=== PATIENT | female | born 1935 | race Caucasian/White ===

== ENCOUNTER 2018-01-09 19:46 | Emergency (ER) | payer MEDICARE, BC ==
[~2018-01-09] VITALS: Ht 160 cm; Wt 63.6 kg
[~2018-01-09 19:46] MED LIST: CEPH500C5 PO
[2018-01-09 21:30] VITALS: BP 144/58
== END 2018-01-09 22:34 | disposition home or self-care (01) ==
LOC: ER 19:46
DX: S00.83XA Contusion of other part of head, initial encounter (principal); S40.211A Abrasion of right shoulder, initial encounter; S80.211A Abrasion, right knee, initial encounter; I10 Essential (primary) hypertension; E11.9 Type 2 diabetes mellitus without complications; Z79.899 Other long term (current) drug therapy; W18.39XA Other fall on same level, initial encounter; Y93.89 Activity, other specified; Y92.89 Other specified places as the place of occurrence of the external cause; Y99.8 Other external cause status
CPT/HCPCS: 70450; 82948; 99284

== ENCOUNTER 2018-07-21 10:21 | Inpatient (IN) | payer MEDICARE, BC ==
[~2018-07-21] VITALS: Ht 160 cm; Wt 58.0 kg
[2018-07-21] MEDS ORDERED: normal saline 1000ML IV soln IVB ONE (12:30)
[2018-07-21] MEDS ORDERED: normal saline 1000ml 1,000 ML IV SCH (12:50)
[2018-07-21 12:55] LABS: BASOPHILS % (AUTO) 0 % (0-1); EOSINOPHILS # (AUTO) 0.2 X10'3 (0-0.9); EOSINOPHILS % (AUTO) 1.5 % (0-6); HEMATOCRIT 40.6 % (35.0-45.0); HEMOGLOBIN 13.4 g/dl (12.0-16.0); LYMPHOCYTES # (AUTO) 1.2 X10'3 (1.1-4.8); LYMPHOCYTES % (AUTO) 10.2 % (21-51); MEAN CORPUSCULAR HEMOGLOBIN 29.5 PG (27.0-31.0); MEAN CORPUSCULAR HGB CONC 32.9 % (33.0-36.5); MEAN CORPUSCULAR VOLUME 89.6 FL (78-98); MEAN PLATELET VOLUME 8.3 FL (7.4-10.4); MONOCYTES # (AUTO) 0.2 X10'3 (0-0.9); NEUTROPHILS # (AUTO) 10.4 X10'3 (1.8-7.7); NEUTROPHILS % (AUTO) 86.3 % (42-75); PLATELET COUNT 303 X10'3 (140-440); RED BLOOD COUNT 4.52 X10'6 (4.20-5.60); RED CELL DISTRIBUTION WIDTH 13.4 % (11.5-14.5)
[2018-07-21 13:11] LABS: PARTIAL THROMBOPLASTIN TIME 25 SECONDS (22-32); PROTHROMBIN TIME 10.3 SECONDS (9.0-12.0)
[2018-07-21 13:26] LABS: ALANINE AMINOTRANSFERASE 18 U/L (12-78); ALBUMIN 3.4 G/DL (3.4-5.0); ALKALINE PHOSPHATASE 78 IU/L (46-116); ANION GAP 12 (8-16); ASPARTATE AMINO TRANSFERASE 14 U/L (10-37); BILIRUBIN,TOTAL 0.5 MG/DL (0.1-1.0); BLOOD UREA NITROGEN 21 MG/DL (7-18); BUN/CREATININE RATIO 22.3 (6.6-38.0); CALCIUM 9.6 MG/DL (8.5-10.1); CHLORIDE 99 MMOL/L (99-107); CREATININE 0.94 MG/DL (0.40-0.90); GLUCOSE 440 MG/DL (70-104); POTASSIUM 5.3 MMOL/L (3.5-5.1); SODIUM 137 MMOL/L (135-145); TOTAL PROTEIN 6.9 G/DL (6.4-8.2); TROPONIN I < 0.04 NG/ML (0.0-0.05); eGFR 57 ML/MIN
[2018-07-21] MEDS ORDERED: insulin regular, human 10 units/0.1 ml syringe IV ONE (13:40)
[2018-07-21] MEDS ORDERED: ondansetron/PF 4mg/2ml inj IV ONE (13:40)
[2018-07-21] MEDS ORDERED: pantoprazole 40 MG vial IV ONE (14:35)
[2018-07-21 14:36] LABS: CLARITY,URINE CLEAR (Clear); COLOR,URINE STRAW (Yellow); GLUCOSE, URINE >=1000 mg/dl (Neg); KETONES,URINE >=80 mg/dl (Neg); LEUKOCYTE ESTERASE ,URINE NEGATIVE (Neg); NITRITES, URINE NEGATIVE (Neg); OCCULT BLOOD,URINE NEGATIVE (Neg); PROTEIN,URINE NEGATIVE (Neg); UROBILINOGEN,URINE 0.2 E.U/dL (0.2-1.0)
[2018-07-21 14:49] LABS: UA COLLECTION TYPE STRAIGHT CATH
[2018-07-21 14:51] LABS: BACTERIA,URINE NONE SEEN /HPF (Neg); RBC,URINE NONE SEEN /HPF (0-2); SQUAMOUS EPITHELIAL CELL,UR FEW /LPF (FEW); WBC,URINE NONE SEEN /HPF (0-4)
[2018-07-21] MEDS ORDERED: magnesium 4gm in 100ml NS 100 ML IV PRN (16:15)
[2018-07-21] MEDS: K and/or MAG REPLACEMENT MC SCH (16:15)
[2018-07-21] MEDS ORDERED: potassium Cl 40MEQ/NS 500ml 500 ML IV PRN ×2 (16:15)
[2018-07-21] MEDS ORDERED: potassium Cl 20 mEq SR tablet PO PRN ×2 (16:15)
[2018-07-21] MEDS ORDERED: ondansetron/PF 4mg/2ml inj IV PRN (16:15)
[2018-07-21] MEDS ORDERED: dextrose 50%-water 50ml dispensing syringe IV PRN ×2 (16:25)
[2018-07-21] MEDS ORDERED: dextrose ORAL solution 15 GM/59 ML bottle PO PRN (16:25)
[2018-07-21] MEDS ORDERED: MESSAGE TO PHARMACY PO ONE (16:25)
[2018-07-21] MEDS ORDERED: glucagon, human recombinant 1mg kit SUBCUT PRN (16:25)
[2018-07-21] MEDS: normal saline 1000ml 1,000 ML IV SCH (16:49)
[2018-07-21 16:52] LABS: HEMOGLOBIN A1C 10.2 % (4.5-6.2)
[2018-07-21] MEDS ORDERED: DIVA125T31 PO (17:54)
[2018-07-21] MEDS ORDERED: MULT-1180 (17:54)
[2018-07-21] MEDS ORDERED: GLIM1TAB46 PO (17:54)
[2018-07-21] MEDS ORDERED: DIVA500T9 PO (17:54)
[2018-07-21] MEDS ORDERED: HYDR-3686 PO (17:54)
[2018-07-21] MEDS ORDERED: ATOR20TA66 PO (17:54)
[2018-07-21] MEDS ORDERED: ESCI10TA54 PO (17:54)
[2018-07-21] MEDS ORDERED: NATE120T6 PO (18:11)
[2018-07-21] MEDS ORDERED: NATE60TA11 CORPAK (18:11)
[2018-07-21] MEDS ORDERED: LISI-604 PO (18:11)
[2018-07-21] MEDS ORDERED: METF-436 PO (18:11)
[2018-07-21] MEDS ORDERED: KEN0.1O TP (18:12)
[2018-07-21] MEDS ORDERED: PSYL3.4P5 PO (18:13)
[2018-07-21] MEDS: pantoprazole 40 MG vial IV SCH (20:08)
[2018-07-21] MEDS: insulin glargine (Lantus) pen - multi-dose SQ SCH (22:10)
[2018-07-21] MEDS ORDERED: Permethrin Cream 60gm TP ONE (23:00)
[2018-07-22] VITALS: BP 114/50
[2018-07-22] MEDS: normal saline 1000ml 1,000 ML IV SCH ×3 (02:27→22:11)
[2018-07-22 04:59] LABS: BASOPHILS # (AUTO) 0.1 X10'3 (0-0.2); BASOPHILS % (AUTO) 0.7 % (0-1); EOSINOPHILS # (AUTO) 0.2 X10'3 (0-0.9); EOSINOPHILS % (AUTO) 1.4 % (0-6); HEMATOCRIT 35.4 % (35.0-45.0); HEMOGLOBIN 11.5 g/dl (12.0-16.0); LYMPHOCYTES # (AUTO) 2.4 X10'3 (1.1-4.8); LYMPHOCYTES % (AUTO) 21.2 % (21-51); MEAN CORPUSCULAR HEMOGLOBIN 29.2 PG (27.0-31.0); MEAN CORPUSCULAR HGB CONC 32.5 % (33.0-36.5); MEAN CORPUSCULAR VOLUME 89.9 FL (78-98); MEAN PLATELET VOLUME 8.7 FL (7.4-10.4); MONOCYTES # (AUTO) 1.1 X10'3 (0-0.9); MONOCYTES % (AUTO) 9.9 % (2-12); NEUTROPHILS # (AUTO) 7.5 X10'3 (1.8-7.7); NEUTROPHILS % (AUTO) 66.8 % (42-75); PLATELET COUNT 263 X10'3 (140-440); RED BLOOD COUNT 3.94 X10'6 (4.20-5.60); RED CELL DISTRIBUTION WIDTH 13.5 % (11.5-14.5); WHITE BLOOD COUNT 11.2 X10'3 (4.5-11.0)
[2018-07-22 05:19] LABS: ALBUMIN 2.8 G/DL (3.4-5.0); ANION GAP 9 (8-16); BLOOD UREA NITROGEN 25 MG/DL (7-18); BUN/CREATININE RATIO 25.5 (6.6-38.0); CALCIUM 8.3 MG/DL (8.5-10.1); CHLORIDE 107 MMOL/L (99-107); CREATININE 0.98 MG/DL (0.40-0.90); GLUCOSE 129 MG/DL (70-104); SODIUM 144 MMOL/L (135-145); TOTAL CARBON DIOXIDE 28.3 MMOL/L (24-32); eGFR 54 ML/MIN
[2018-07-22 07:50] VITALS: BP 102/40
[2018-07-22] MEDS ORDERED: metFORMIN 500mg tablet PO SCH (08:00)
[2018-07-22] MEDS: K and/or MAG REPLACEMENT MC SCH (08:00)
[2018-07-22] MEDS: citalopram 20mg tablet PO SCH (08:12)
[2018-07-22] MEDS: pantoprazole 40 MG vial IV SCH ×2 (08:12→19:45)
[2018-07-22] MEDS: atorvastatin 20mg tablet PO SCH (08:13)
[2018-07-22] MEDS: divalproex sod 125mg tablet.DR PO SCH ×2 (08:13→19:46)
[2018-07-22] MEDS: lisinopril 10 MG tablet PO SCH (08:14)
[2018-07-22] MEDS: magnesium Cl slow-release 64mg tablet PO PRN ×2 (10:09→22:31)
[2018-07-22 11:47] VITALS: BP 148/63
[2018-07-22] MEDS ORDERED: levoFLOXACIN-Levaquin 500mg/D5 100 ML IV ONE (15:10)
[2018-07-22 18:00] VITALS: BP 133/57
[2018-07-22 19:00] LABS: CLARITY,URINE CLEAR (Clear); COLOR,URINE YELLOW (Yellow); GLUCOSE, URINE >=1000 mg/dl (Neg); KETONES,URINE 15 mg/dl (Neg); LEUKOCYTE ESTERASE ,URINE NEGATIVE (Neg); NITRITES, URINE NEGATIVE (Neg); OCCULT BLOOD,URINE NEGATIVE (Neg); PROTEIN,URINE NEGATIVE (Neg); UROBILINOGEN,URINE 0.2 E.U/dL (0.2-1.0)
[2018-07-22 19:07] LABS: RBC,URINE 0-2 /HPF (0-2); UA COLLECTION TYPE STRAIGHT CATH; WBC,URINE NONE SEEN /HPF (0-4)
[2018-07-22 19:08] LABS: BACTERIA,URINE FEW /HPF (Neg); MUCUS STRANDS FEW /LPF (Neg); SQUAMOUS EPITHELIAL CELL,UR FEW /LPF (FEW)
[2018-07-22] MEDS: hydrocortisone 1% cream 28gm TP SCH (19:45)
[2018-07-22] MEDS ORDERED: sennosides/docusate sodium tablet PO ONE (20:00)
[2018-07-22] MEDS ORDERED: insulin glargine (Lantus) pen - multi-dose SQ ONE (21:00)
[2018-07-22] MEDS: insulin glargine (Lantus) pen - multi-dose SQ SCH (21:00)
[2018-07-23] VITALS: BP 130/70
[2018-07-23] MEDS: normal saline 1000ml 1,000 ML IV SCH ×2 (01:43→12:55)
[2018-07-23 05:18] LABS: BASOPHILS # (AUTO) 0.1 X10'3 (0-0.2); BASOPHILS % (AUTO) 1.1 % (0-1); EOSINOPHILS # (AUTO) 0.2 X10'3 (0-0.9); EOSINOPHILS % (AUTO) 1.9 % (0-6); HEMOGLOBIN 10.8 g/dl (12.0-16.0); LYMPHOCYTES # (AUTO) 2.2 X10'3 (1.1-4.8); LYMPHOCYTES % (AUTO) 26.4 % (21-51); MEAN CORPUSCULAR HEMOGLOBIN 29.1 PG (27.0-31.0); MEAN CORPUSCULAR HGB CONC 32.5 % (33.0-36.5); MEAN CORPUSCULAR VOLUME 89.6 FL (78-98); MEAN PLATELET VOLUME 8.6 FL (7.4-10.4); MONOCYTES # (AUTO) 0.8 X10'3 (0-0.9); NEUTROPHILS # (AUTO) 5.2 X10'3 (1.8-7.7); NEUTROPHILS % (AUTO) 61.6 % (42-75); PLATELET COUNT 260 X10'3 (140-440); RED BLOOD COUNT 3.69 X10'6 (4.20-5.60); RED CELL DISTRIBUTION WIDTH 13.7 % (11.5-14.5); WHITE BLOOD COUNT 8.4 X10'3 (4.5-11.0)
[2018-07-23 05:42] LABS: ALBUMIN 2.5 G/DL (3.4-5.0); ANION GAP 8 (8-16); BLOOD UREA NITROGEN 19 MG/DL (7-18); BUN/CREATININE RATIO 25.7 (6.6-38.0); CALCIUM 8.5 MG/DL (8.5-10.1); CHLORIDE 106 MMOL/L (99-107); CREATININE 0.74 MG/DL (0.40-0.90); GLUCOSE 69 MG/DL (70-104); POTASSIUM 4.3 MMOL/L (3.5-5.1); SODIUM 141 MMOL/L (135-145); TOTAL CARBON DIOXIDE 27.4 MMOL/L (24-32); eGFR 75 ML/MIN
[2018-07-23 07:00] VITALS: BP 133/56
[2018-07-23] MEDS: atorvastatin 20mg tablet PO SCH (07:23)
[2018-07-23] MEDS: citalopram 20mg tablet PO SCH (07:23)
[2018-07-23] MEDS: lisinopril 10 MG tablet PO SCH (07:23)
[2018-07-23] MEDS: pantoprazole 40 MG vial IV SCH (07:23)
[2018-07-23] MEDS: dextrose ORAL solution 15 GM/59 ML bottle PO PRN ×3 (07:23→17:19)
[2018-07-23] MEDS: divalproex sod 125mg tablet.DR PO SCH ×2 (07:23→20:26)
[2018-07-23] MEDS: K and/or MAG REPLACEMENT MC SCH (08:00)
[2018-07-23] MEDS: hydrocortisone 1% cream 28gm TP SCH ×2 (08:45→20:27)
[2018-07-23] MEDS: magnesium Cl slow-release 64mg tablet PO PRN ×2 (08:52→17:19)
[2018-07-23] MEDS ORDERED: tamsulosin 0.4mg capsule PO ONE (09:15)
[2018-07-23 11:00] VITALS: BP 113/68
[2018-07-23] MEDS ORDERED: levoFLOXACIN 500mg tablet PO ONE (11:40)
[2018-07-23] MEDS: insulin Lispro (HumaLOG) vial - multi-dose SQ SCH (13:48)
[2018-07-23 16:11] LABS: POTASSIUM 3.9 MMOL/L (3.5-5.1)
[2018-07-23 18:00] VITALS: BP 134/54
[2018-07-23] MEDS ORDERED: sennosides/docusate sodium tablet PO ONE (18:35)
[2018-07-23] MEDS: insulin glargine (Lantus) pen - multi-dose SQ SCH (22:26)
[2018-07-23 23:30] VITALS: BP 110/43
[2018-07-24] MEDS: magnesium 1gm/100ml D5W IVPB 100 ML IV PRN ×2 (01:18→03:36)
[2018-07-24 05:40] LABS: BASOPHILS % (AUTO) 0.3 % (0-1); EOSINOPHILS # (AUTO) 0.2 X10'3 (0-0.9); HEMATOCRIT 33.8 % (35.0-45.0); HEMOGLOBIN 10.8 g/dl (12.0-16.0); LYMPHOCYTES # (AUTO) 1.5 X10'3 (1.1-4.8); LYMPHOCYTES % (AUTO) 25.8 % (21-51); MEAN CORPUSCULAR HEMOGLOBIN 28.7 PG (27.0-31.0); MEAN CORPUSCULAR VOLUME 89.5 FL (78-98); MEAN PLATELET VOLUME 8.6 FL (7.4-10.4); MONOCYTES # (AUTO) 0.6 X10'3 (0-0.9); MONOCYTES % (AUTO) 10.4 % (2-12); NEUTROPHILS # (AUTO) 3.6 X10'3 (1.8-7.7); NEUTROPHILS % (AUTO) 60.5 % (42-75); PLATELET COUNT 227 X10'3 (140-440); RED BLOOD COUNT 3.78 X10'6 (4.20-5.60); RED CELL DISTRIBUTION WIDTH 13.3 % (11.5-14.5)
[2018-07-24 05:57] LABS: ALBUMIN 2.6 G/DL (3.4-5.0); ANION GAP 6 (8-16); BLOOD UREA NITROGEN 14 MG/DL (7-18); BUN/CREATININE RATIO 19.7 (6.6-38.0); CALCIUM 8.9 MG/DL (8.5-10.1); CHLORIDE 103 MMOL/L (99-107); CREATININE 0.71 MG/DL (0.40-0.90); GLUCOSE 251 MG/DL (70-104); POTASSIUM 3.9 MMOL/L (3.5-5.1); SODIUM 136 MMOL/L (135-145); TOTAL CARBON DIOXIDE 26.8 MMOL/L (24-32); eGFR 78 ML/MIN
[2018-07-24 07:00] VITALS: BP 128/47
[2018-07-24] MEDS: citalopram 20mg tablet PO SCH (07:04)
[2018-07-24] MEDS: pantoprazole 40mg Tablet.DR PO SCH (07:04)
[2018-07-24] MEDS: divalproex sod 125mg tablet.DR PO SCH ×2 (07:05→20:05)
[2018-07-24] MEDS: atorvastatin 20mg tablet PO SCH (07:05)
[2018-07-24] MEDS: hydrocortisone 1% cream 28gm TP SCH ×2 (07:06→20:05)
[2018-07-24] MEDS: lisinopril 10 MG tablet PO SCH (07:10)
[2018-07-24] MEDS: normal saline 1000ml 1,000 ML IV SCH ×2 (07:15→22:58)
[2018-07-24] MEDS: K and/or MAG REPLACEMENT MC SCH (08:00)
[2018-07-24] MEDS: insulin Lispro (HumaLOG) vial - multi-dose SQ SCH ×2 (09:26→13:27)
[2018-07-24] MEDS ORDERED: magnesium hydroxide 30ml (MOM) UD suspension PO PRN (11:55)
[2018-07-24] MEDS ORDERED: docusate sod 100mg capsule PO ONE (12:40)
[2018-07-24] MEDS: dextrose ORAL solution 15 GM/59 ML bottle PO PRN ×2 (17:29→17:44)
[2018-07-24 20:00] VITALS: BP 113/50
[2018-07-24] MEDS: docusate sod 100mg capsule PO SCH (20:05)
[2018-07-24] MEDS: insulin glargine (Lantus) pen - multi-dose SQ SCH (21:14)
[2018-07-25] VITALS: BP 138/59
[2018-07-25 05:48] LABS: BASOPHILS # (AUTO) 0.1 X10'3 (0-0.2); BASOPHILS % (AUTO) 1.1 % (0-1); EOSINOPHILS # (AUTO) 0.2 X10'3 (0-0.9); HEMATOCRIT 33.1 % (35.0-45.0); HEMOGLOBIN 10.8 g/dl (12.0-16.0); LYMPHOCYTES # (AUTO) 1.5 X10'3 (1.1-4.8); LYMPHOCYTES % (AUTO) 31.8 % (21-51); MEAN CORPUSCULAR HEMOGLOBIN 29.1 PG (27.0-31.0); MEAN CORPUSCULAR HGB CONC 32.6 % (33.0-36.5); MEAN CORPUSCULAR VOLUME 89.3 FL (78-98); MEAN PLATELET VOLUME 8.5 FL (7.4-10.4); MONOCYTES # (AUTO) 0.4 X10'3 (0-0.9); MONOCYTES % (AUTO) 8.9 % (2-12); NEUTROPHILS # (AUTO) 2.6 X10'3 (1.8-7.7); NEUTROPHILS % (AUTO) 54.2 % (42-75); PLATELET COUNT 232 X10'3 (140-440); RED BLOOD COUNT 3.71 X10'6 (4.20-5.60); RED CELL DISTRIBUTION WIDTH 13.7 % (11.5-14.5); WHITE BLOOD COUNT 4.8 X10'3 (4.5-11.0)
[2018-07-25 06:03] LABS: ALBUMIN 2.5 G/DL (3.4-5.0); ANION GAP 6 (8-16); BLOOD UREA NITROGEN 12 MG/DL (7-18); BUN/CREATININE RATIO 19.7 (6.6-38.0); CALCIUM 8.4 MG/DL (8.5-10.1); CHLORIDE 106 MMOL/L (99-107); CREATININE 0.61 MG/DL (0.40-0.90); GLUCOSE 136 MG/DL (70-104); MAGNESIUM 1.8 MG/DL (1.5-2.4); POTASSIUM 3.5 MMOL/L (3.5-5.1); SODIUM 138 MMOL/L (135-145); TOTAL CARBON DIOXIDE 25.9 MMOL/L (24-32); eGFR > 90 ML/MIN
[2018-07-25 07:00] VITALS: BP 132/61
[2018-07-25] MEDS: citalopram 20mg tablet PO SCH (07:11)
[2018-07-25] MEDS: docusate sod 100mg capsule PO SCH ×2 (07:12→20:34)
[2018-07-25] MEDS: atorvastatin 20mg tablet PO SCH (07:12)
[2018-07-25] MEDS: divalproex sod 125mg tablet.DR PO SCH ×2 (07:12→20:34)
[2018-07-25] MEDS: hydrocortisone 1% cream 28gm TP SCH ×2 (07:13→20:34)
[2018-07-25] MEDS: pantoprazole 40mg Tablet.DR PO SCH (07:13)
[2018-07-25] MEDS: lisinopril 10 MG tablet PO SCH (07:13)
[2018-07-25] MEDS: K and/or MAG REPLACEMENT MC SCH (08:00)
[2018-07-25] MEDS: insulin Lispro (HumaLOG) vial - multi-dose SQ SCH ×2 (09:47→20:18)
[2018-07-25 11:00] VITALS: BP 132/61
[2018-07-25] MEDS: normal saline 1000ml 1,000 ML IV SCH ×2 (12:21→20:35)
[2018-07-25] MEDS ORDERED: lactulose 20gm/30ml cup PO ONE (18:15)
[2018-07-25 20:00] VITALS: BP 151/57
[2018-07-25] MEDS: insulin glargine (Lantus) pen - multi-dose SQ SCH (22:17)
[2018-07-26] VITALS: BP 97/66
[2018-07-26 05:06] LABS: BASOPHILS % (AUTO) 0.6 % (0-1); EOSINOPHILS # (AUTO) 0.2 X10'3 (0-0.9); EOSINOPHILS % (AUTO) 4.1 % (0-6); HEMATOCRIT 32.1 % (35.0-45.0); HEMOGLOBIN 10.6 g/dl (12.0-16.0); LYMPHOCYTES % (AUTO) 41.8 % (21-51); MEAN CORPUSCULAR HEMOGLOBIN 29.5 PG (27.0-31.0); MEAN CORPUSCULAR VOLUME 89.4 FL (78-98); MEAN PLATELET VOLUME 8.6 FL (7.4-10.4); MONOCYTES # (AUTO) 0.5 X10'3 (0-0.9); MONOCYTES % (AUTO) 9.2 % (2-12); NEUTROPHILS # (AUTO) 2.2 X10'3 (1.8-7.7); NEUTROPHILS % (AUTO) 44.3 % (42-75); PLATELET COUNT 243 X10'3 (140-440); RED BLOOD COUNT 3.59 X10'6 (4.20-5.60); RED CELL DISTRIBUTION WIDTH 13.8 % (11.5-14.5); WHITE BLOOD COUNT 4.9 X10'3 (4.5-11.0)
[2018-07-26 05:28] LABS: ALBUMIN 2.4 G/DL (3.4-5.0); ANION GAP 8 (8-16); BLOOD UREA NITROGEN 13 MG/DL (7-18); BUN/CREATININE RATIO 21.3 (6.6-38.0); CALCIUM 8.5 MG/DL (8.5-10.1); CHLORIDE 108 MMOL/L (99-107); CREATININE 0.61 MG/DL (0.40-0.90); GLUCOSE 76 MG/DL (70-104); MAGNESIUM 1.5 MG/DL (1.5-2.4); POTASSIUM 3.9 MMOL/L (3.5-5.1); SODIUM 142 MMOL/L (135-145); TOTAL CARBON DIOXIDE 26.1 MMOL/L (24-32); eGFR > 90 ML/MIN
[2018-07-26 07:00] VITALS: BP 112/55
[2018-07-26] MEDS: divalproex sod 125mg tablet.DR PO SCH ×2 (07:19→20:17)
[2018-07-26] MEDS: dextrose ORAL solution 15 GM/59 ML bottle PO PRN (07:19)
[2018-07-26] MEDS: docusate sod 100mg capsule PO SCH ×2 (07:21→20:18)
[2018-07-26] MEDS: atorvastatin 20mg tablet PO SCH (07:21)
[2018-07-26] MEDS: lisinopril 10 MG tablet PO SCH (07:22)
[2018-07-26] MEDS: citalopram 20mg tablet PO SCH (07:22)
[2018-07-26] MEDS: hydrocortisone 1% cream 28gm TP SCH ×2 (07:23→20:18)
[2018-07-26] MEDS: pantoprazole 40mg Tablet.DR PO SCH (07:23)
[2018-07-26] MEDS: normal saline 1000ml 1,000 ML IV SCH ×2 (07:23→20:44)
[2018-07-26] MEDS: K and/or MAG REPLACEMENT MC SCH (08:00)
[2018-07-26 12:28] VITALS: BP 108/56
[2018-07-26] MEDS: insulin Lispro (HumaLOG) vial - multi-dose SQ SCH ×2 (13:18→19:03)
[2018-07-26 19:52] VITALS: BP 159/61
[2018-07-26] MEDS: insulin glargine (Lantus) pen - multi-dose SQ SCH (20:50)
[2018-07-26 23:48] VITALS: BP 151/52
[2018-07-27] MEDS: normal saline 1000ml 1,000 ML IV SCH ×2 (00:59→12:58)
[2018-07-27 07:30] VITALS: BP 154/44
[2018-07-27] MEDS: K and/or MAG REPLACEMENT MC SCH (08:00)
[2018-07-27] MEDS: citalopram 20mg tablet PO SCH (08:46)
[2018-07-27] MEDS: pantoprazole 40mg Tablet.DR PO SCH (08:46)
[2018-07-27] MEDS: atorvastatin 20mg tablet PO SCH (08:46)
[2018-07-27] MEDS: docusate sod 100mg capsule PO SCH ×2 (08:46→19:50)
[2018-07-27] MEDS: lisinopril 10 MG tablet PO SCH (08:47)
[2018-07-27] MEDS: divalproex sod 125mg tablet.DR PO SCH ×2 (08:47→19:50)
[2018-07-27] MEDS: hydrocortisone 1% cream 28gm TP SCH ×2 (08:53→19:50)
[2018-07-27] MEDS: insulin Lispro (HumaLOG) vial - multi-dose SQ SCH ×3 (08:59→19:52)
[2018-07-27] MEDS ORDERED: magnesium 4gm in 100ml NS 100 ML IV PRN (09:55)
[2018-07-27] MEDS ORDERED: Ivermectin 3mg tablet PO ONE (10:20)
[2018-07-27 13:31] VITALS: BP 123/66
[2018-07-27] MEDS: magnesium Cl slow-release 64mg tablet PO PRN (13:51)
[2018-07-27] MEDS: heparin, porcine 5000 units/ml vial SQ SCH (19:50)
[2018-07-27 20:00] VITALS: BP 126/47
[2018-07-27] MEDS: insulin glargine (Lantus) pen - multi-dose SQ SCH (21:22)
[2018-07-28] VITALS: BP 103/50
[2018-07-28] MEDS: magnesium Cl slow-release 64mg tablet PO PRN (01:59)
[2018-07-28] MEDS: normal saline 1000ml 1,000 ML IV SCH ×2 (03:59→20:21)
[2018-07-28 07:00] VITALS: BP 105/75
[2018-07-28] MEDS: K and/or MAG REPLACEMENT MC SCH (07:25)
[2018-07-28] MEDS: atorvastatin 20mg tablet PO SCH (07:35)
[2018-07-28] MEDS: citalopram 20mg tablet PO SCH (07:35)
[2018-07-28] MEDS: pantoprazole 40mg Tablet.DR PO SCH (07:35)
[2018-07-28] MEDS: lisinopril 10 MG tablet PO SCH (07:35)
[2018-07-28] MEDS: docusate sod 100mg capsule PO SCH ×2 (07:35→19:23)
[2018-07-28] MEDS: divalproex sod 125mg tablet.DR PO SCH ×2 (07:36→19:23)
[2018-07-28] MEDS: heparin, porcine 5000 units/ml vial SQ SCH ×2 (07:38→19:24)
[2018-07-28] MEDS: hydrocortisone 1% cream 28gm TP SCH ×2 (07:44→19:25)
[2018-07-28] MEDS ORDERED: magnesium citrate 296ml oral solution PO ONE (13:10)
[2018-07-28] MEDS: insulin Lispro (HumaLOG) vial - multi-dose SQ SCH (19:23)
[2018-07-28 20:00] VITALS: BP 120/52
[2018-07-28] MEDS: insulin glargine (Lantus) pen - multi-dose SQ SCH (21:53)
[2018-07-29] VITALS: BP 124/93
[2018-07-29] MEDS: lisinopril 10 MG tablet PO SCH (07:57)
[2018-07-29] MEDS: pantoprazole 40mg Tablet.DR PO SCH (07:57)
[2018-07-29] MEDS: docusate sod 100mg capsule PO SCH ×2 (07:57→19:04)
[2018-07-29] MEDS: divalproex sod 125mg tablet.DR PO SCH ×2 (07:58→19:04)
[2018-07-29] MEDS: hydrocortisone 1% cream 28gm TP SCH ×2 (07:58→19:04)
[2018-07-29] MEDS: heparin, porcine 5000 units/ml vial SQ SCH ×2 (07:58→22:58)
[2018-07-29] MEDS: atorvastatin 20mg tablet PO SCH (07:58)
[2018-07-29] MEDS: citalopram 20mg tablet PO SCH (07:58)
[2018-07-29 08:00] VITALS: BP 124/40
[2018-07-29] MEDS: K and/or MAG REPLACEMENT MC SCH (08:00)
[2018-07-29] MEDS ORDERED: magnesium citrate 296ml oral solution PO ONE (09:30)
[2018-07-29] MEDS: normal saline 1000ml 1,000 ML IV SCH ×2 (09:47→22:47)
[2018-07-29 12:00] VITALS: BP 114/31
[2018-07-29 12:30] VITALS: BP 150/66
[2018-07-29] MEDS: insulin Lispro (HumaLOG) vial - multi-dose SQ SCH ×2 (13:10→19:00)
[2018-07-29] MEDS ORDERED: PEG 3350/Na sulf,bicarb,Cl/KCl oral sol 4 liter bottle PO ONE (16:15)
[2018-07-29 18:00] VITALS: BP 111/76
[2018-07-29] MEDS: insulin glargine (Lantus) pen - multi-dose SQ SCH (22:17)
[2018-07-29 22:47] LABS: HEMATOCRIT 29.9 % (35.0-45.0); HEMOGLOBIN 9.6 g/dl (12.0-16.0); MEAN CORPUSCULAR HEMOGLOBIN 29.1 PG (27.0-31.0); MEAN CORPUSCULAR HGB CONC 32.3 % (33.0-36.5); MEAN CORPUSCULAR VOLUME 90.2 FL (78-98); PLATELET COUNT 255 X10'3 (140-440); RED BLOOD COUNT 3.31 X10'6 (4.20-5.60); RED CELL DISTRIBUTION WIDTH 14.2 % (11.5-14.5); WHITE BLOOD COUNT 8.5 X10'3 (4.5-11.0)
[2018-07-30] MEDS: heparin, porcine 5000 units/ml vial SQ SCH ×2 (07:29→19:02)
[2018-07-30] MEDS: pantoprazole 40mg Tablet.DR PO SCH (07:29)
[2018-07-30] MEDS: atorvastatin 20mg tablet PO SCH (07:29)
[2018-07-30] MEDS: citalopram 20mg tablet PO SCH (07:29)
[2018-07-30] MEDS: docusate sod 100mg capsule PO SCH ×2 (07:29→19:01)
[2018-07-30] MEDS: lisinopril 10 MG tablet PO SCH (07:30)
[2018-07-30] MEDS: divalproex sod 125mg tablet.DR PO SCH ×2 (07:32→19:01)
[2018-07-30] MEDS: hydrocortisone 1% cream 28gm TP SCH ×2 (07:32→19:01)
[2018-07-30] MEDS: K and/or MAG REPLACEMENT MC SCH (08:00)
[2018-07-30 08:07] VITALS: BP 134/55
[2018-07-30 09:40] LABS: OCCULT BLOOD STOOL NEGATIVE (Neg)
[2018-07-30] MEDS: normal saline 1000ml 1,000 ML IV SCH ×2 (12:07→23:54)
[2018-07-30 13:17] VITALS: BP 142/47
[2018-07-30] MEDS: insulin Lispro (HumaLOG) vial - multi-dose SQ SCH ×2 (13:42→19:06)
[2018-07-30 19:00] VITALS: BP 140/50
[2018-07-30] MEDS: insulin glargine (Lantus) pen - multi-dose SQ SCH (21:13)
[2018-07-31] VITALS: BP 145/78
[2018-07-31 07:19] VITALS: BP 128/54
[2018-07-31] MEDS: dextrose ORAL solution 15 GM/59 ML bottle PO PRN ×2 (07:44→08:08)
[2018-07-31] MEDS: pantoprazole 40mg Tablet.DR PO SCH (07:46)
[2018-07-31] MEDS: divalproex sod 125mg tablet.DR PO SCH ×2 (07:46→20:56)
[2018-07-31] MEDS: lisinopril 10 MG tablet PO SCH (07:47)
[2018-07-31] MEDS: citalopram 20mg tablet PO SCH (07:47)
[2018-07-31] MEDS: docusate sod 100mg capsule PO SCH ×2 (07:47→20:56)
[2018-07-31] MEDS: atorvastatin 20mg tablet PO SCH (07:47)
[2018-07-31] MEDS: K and/or MAG REPLACEMENT MC SCH (07:48)
[2018-07-31] MEDS: hydrocortisone 1% cream 28gm TP SCH ×2 (07:59→20:57)
[2018-07-31 08:10] LABS: HEMATOCRIT 34.3 % (35.0-45.0); HEMOGLOBIN 11.1 g/dl (12.0-16.0); MEAN CORPUSCULAR HEMOGLOBIN 29.5 PG (27.0-31.0); MEAN CORPUSCULAR HGB CONC 32.5 % (33.0-36.5); MEAN CORPUSCULAR VOLUME 90.9 FL (78-98); MEAN PLATELET VOLUME 8.3 FL (7.4-10.4); PLATELET COUNT 286 X10'3 (140-440); RED BLOOD COUNT 3.77 X10'6 (4.20-5.60); RED CELL DISTRIBUTION WIDTH 14.2 % (11.5-14.5); WHITE BLOOD COUNT 9.5 X10'3 (4.5-11.0)
[2018-07-31] MEDS: heparin, porcine 5000 units/ml vial SQ SCH ×2 (08:13→20:56)
[2018-07-31 12:06] VITALS: BP 128/54
[2018-07-31] MEDS ORDERED: bisacodyl 10mg suppository rectal RC PRN (13:20)
[2018-07-31] MEDS ORDERED: mineral oil 133ml enema RC PRN (13:20)
[2018-07-31] MEDS: insulin Lispro (HumaLOG) vial - multi-dose SQ SCH ×2 (14:44→19:24)
[2018-07-31 19:00] VITALS: BP 134/65
[2018-07-31 20:00] VITALS: BP 134/65
[2018-07-31] MEDS: insulin glargine (Lantus) pen - multi-dose SQ SCH (21:00)
[2018-08-01] VITALS: BP 110/55
[2018-08-01 07:00] VITALS: BP 109/54
[2018-08-01] MEDS: pantoprazole 40mg Tablet.DR PO SCH (07:30)
[2018-08-01 08:00] VITALS: BP_SYST 109
[2018-08-01] MEDS: citalopram 20mg tablet PO SCH ×2 (08:00→08:44)
[2018-08-01] MEDS: hydrocortisone 1% cream 28gm TP SCH (08:00)
[2018-08-01] MEDS: lisinopril 10 MG tablet PO SCH ×2 (08:00→08:44)
[2018-08-01] MEDS: atorvastatin 20mg tablet PO SCH ×2 (08:00→08:43)
[2018-08-01] MEDS: divalproex sod 125mg tablet.DR PO SCH ×2 (08:00→08:43)
[2018-08-01] MEDS: K and/or MAG REPLACEMENT MC SCH (08:00)
[2018-08-01] MEDS: heparin, porcine 5000 units/ml vial SQ SCH ×2 (08:00→08:43)
[2018-08-01] MEDS: docusate sod 100mg capsule PO SCH ×2 (08:00→08:44)
== END 2018-08-01 12:04 | DRG 638 ==
LOC: ER 10:21 → ED HOLD 16:11 → SUR 3N 19:30
PROVIDERS: ADMIT Internal Medicine; ATTEND Internal Medicine
DX: E11.65 Type 2 diabetes mellitus with hyperglycemia (principal); K92.0 Hematemesis; R26.89 Other abnormalities of gait and mobility; E86.0 Dehydration; E78.5 Hyperlipidemia, unspecified; E87.5 Hyperkalemia; F03.90 Unspecified dementia, unspecified severity, without behavioral disturbance, psychotic disturbance, mood disturbance, and anxiety; I10 Essential (primary) hypertension; K59.00 Constipation, unspecified; R29.6 Repeated falls; R11.2 Nausea with vomiting, unspecified; D72.829 Elevated white blood cell count, unspecified; E11.42 Type 2 diabetes mellitus with diabetic polyneuropathy; L85.9 Epidermal thickening, unspecified; L30.9 Dermatitis, unspecified; Z66 Do not resuscitate; E83.42 Hypomagnesemia; F32.9 Major depressive disorder, single episode, unspecified; R33.9 Retention of urine, unspecified; L53.8 Other specified erythematous conditions; L85.0 Acquired ichthyosis; Z79.899 Other long term (current) drug therapy
CPT/HCPCS: 36415; 70450; 71045; 74176; 80048; 80053; 80164; 81001; 82140; 82272; 82948; 83036; 83735; 84132; 84484; 85025; 85027; 85610; 85730; 87070; 93005; 97110; 97116; 97161; 97530; C9113; G0378; J1644; J1815; J1956; J2405; J3475; J7030